=== PATIENT | male | born 1955 | race Caucasian/White ===

== ENCOUNTER → 2020-01-16 | Outpatient (CLI) | payer BC ==
--- NOTE | 2020-01-16 13:27 | XR ---
EXAMINATION TYPE: XR ankle complete RT DATE OF EXAM: 01/16/2020 COMPARISON: NONE HISTORY: Pain FINDINGS: Three views of the ankle demonstrate the ankle mortise to be distorted. There is a fracture obliquely oriented involving the distal fibula. There is a fracture involving the posterior tibia. Calcaneal s pur noted. Marked asymmetry of the ankle mortise with subluxation or partial dislocation of the tibia medially. Sclerotic density involving the dome of the talus could be associated with osteochondritis . IMPRESSION: 1. Oblique fracture of the distal fibula and mildly displaced fracture extending to the articular charissa face of the posterior tibia. There is distortion of the ankle mortise and subluxation at the ankle enriqueta int as discussed above. 2. Sclerosis involving the talus can be associated with osteochondritis.
== END | disposition home or self-care (01) ==
LOC: RADXRYALE 12:43
PROVIDERS: ATTEND Internal Medicine
DX: S82.431A Displaced oblique fracture of shaft of right fibula, initial encounter for closed fracture (principal); S82.291A Other fracture of shaft of right tibia, initial encounter for closed fracture; S93.01XA Subluxation of right ankle joint, initial encounter; M89.8X7 Other specified disorders of bone, ankle and foot; M93.971 Osteochondropathy, unspecified, right ankle and foot

== ENCOUNTER → 2020-08-27 | Outpatient (CLI) | payer BC | END | disposition home or self-care (01) | LOC: LABWHC1 15:09 | PROVIDERS: ATTEND Internal Medicine | DX: Z20.822 Contact with and (suspected) exposure to COVID-19 (principal); R06.02 Shortness of breath; R68.83 Chills (without fever) | CPT/HCPCS: U0003; C9803; U0005 ==